=== PATIENT | male | born 1990 | race Caucasian/White ===

== ENCOUNTER 2020-07-30 20:12 | Emergency (ER) | payer OTHER ==
[~2020-07-30] VITALS: Ht 177.8 cm; Wt 77.3 kg
[2020-07-30] MEDS ORDERED: ACETAMINOPHEN/CODEINE 300-30 MG TABLET PO ONE (22:45)
[2020-07-30] MEDS ORDERED: IBUPROFEN 600 MG TABLET PO ONE (22:45)
[2020-07-30 23:18] VITALS: BP 129/77
== END 2020-07-30 23:55 | disposition home or self-care (01) ==
LOC: EMS 20:14
DX: S92.001A Unspecified fracture of right calcaneus, initial encounter for closed fracture (principal); W20.8XXA Other cause of strike by thrown, projected or falling object, initial encounter; Y93.89 Activity, other specified; Y92.89 Other specified places as the place of occurrence of the external cause; Y99.8 Other external cause status
CPT/HCPCS: 29515; 29540; 99283